=== PATIENT | male | born 1995 | race Caucasian/White ===

== ENCOUNTER 2017-02-07 21:53 | Emergency (ER) | payer SELFPAY ==
--- NOTE | ~2017-02-07 | CR141 ---
[facility]. [facility] A Service of [facility] RADIOLOGY TEXT RESULTS PATIENT: SLADE FERNANDEZ LOCATION: SED : [birth year] UNIT #: [id number] AGE: [address]: MANNY CHURCH SEX: M ORDER DR: [id number] [address] [address] [id number] E MR#: [id number] Acc #: [id number] NAME: SLADE FERNANDEZ : 1995 SEX: M STUDY DATE/TIME: 02/07/2017 21:30 UNIT: SED ROOM: STUDY DESCRIPTION: CR Hand Min 3 Views Lt Attending Physician: Manny Church Ordering Physician: Kurt Gracia M.D. MEDICAL IMAGING REPORT This report is preliminary unless electronic signature is present. EXAM Left hand 3 views HISTORY Puncture wound to the hand today at noon. FINDINGS 3 views of the hand are submitted. The bony elements appear intact. No fractures or radiopaque foreign bodies are seen. CONCLUSION Negative left hand. No fractures or foreign bodies. Dictated by... Kurt Stanley M.D. THIS IS AN ELECTRONICALLY VERIFIED REPORT Kurt Stanley M.D. at 02/11/2017 5:10 PM Denisse TD: 02/08/2017 09:24 JOB #: [id number] MEDICAL IMAGING REPORT Page 1 of 1
[~2017-02-07 21:53] MED LIST: NO MEDICATIONS
== END 2017-02-07 22:41 | disposition home or self-care (01) ==
LOC: SED 21:53
DX: S61.432A Puncture wound without foreign body of left hand, initial encounter (principal); Z23 Encounter for immunization; F17.210 Nicotine dependence, cigarettes, uncomplicated; W22.8XXA Striking against or struck by other objects, initial encounter; Y92.009 Unspecified place in unspecified non-institutional (private) residence as the place of occurrence of the external cause
CPT/HCPCS: 73130; 90471; 90715; 99283

== ENCOUNTER 2017-05-22 22:09 | Emergency (ER) | payer SELFPAY ==
--- NOTE | ~2017-05-22 | CR142 ---
[facility]. [facility] A Service of [facility] RADIOLOGY TEXT RESULTS PATIENT: SLADE FERNANDEZ LOCATION: SED : [birth year] UNIT #: [id number] AGE: [address]: Kurt Gracia MD SEX: M ORDER DR: [id number] [place] [id number] E MR#: [id number] Acc #: [id number] NAME: SLADE FERNANDEZ : 1995 SEX: M STUDY DATE/TIME: 05/22/2017 22:50 UNIT: SED ROOM: STUDY DESCRIPTION: CR Hand Min 3 Views Rt Attending Physician: Kurt Gracia M.D. Ordering Physician: Kurt Gracia M.D. Primary Care Physician: Primary Care Physician No MEDICAL IMAGING REPORT This report is preliminary unless electronic signature is present. EXAM Right hand series INDICATIONS Right hand pain and laceration after an injury tonight. PROCEDURE Three views of the right hand. COMPARISON None FINDINGS No fracture. No radiodense foreign body. IMPRESSION No acute findings. Dictated by... Dong Cruz M.D. THIS IS AN ELECTRONICALLY VERIFIED REPORT Dong Cruz M.D. at 05/23/2017 10:25 PM EED/psc TD: 05/23/2017 01:34 JOB #: [id number] MEDICAL IMAGING REPORT Page 1 of 1
== END 2017-05-23 00:26 | disposition home or self-care (01) ==
LOC: SED 22:09
DX: S61.210A Laceration without foreign body of right index finger without damage to nail, initial encounter (principal); Z87.891 Personal history of nicotine dependence; X58.XXXA Exposure to other specified factors, initial encounter; Y92.027 Garden or yard of mobile home as the place of occurrence of the external cause
CPT/HCPCS: 12001; 73130; 99283